=== PATIENT | female | born 1980 | race Caucasian/White ===

== ENCOUNTER 2016-11-22 08:26 | Emergency (ER) | payer OTHER ==
[~2016-11-22] VITALS: Ht 167.6 cm; Wt 78.0 kg
[~2016-11-22 08:26] MED LIST: ALBUTEROL0.09 MG/A1 INH; AUGMENTIN 875 M1 TAB PO; PREDNISONE50 MG PO
[2016-11-22 08:30] VITALS: BP 122/81
--- NOTE | 2016-11-22 08:49 | ED DYSPNEA/ASTHMA COMPLAINT ---
History of Present Illness General Chief Complaint: Wheezing/Asthma Stated Complaint: ASTHMA Source: patient, old records Exam Limitations: no limitations Vital Signs & Intake/Output Vital Signs & Intake/Output Vital Signs Date Time Temp Pulse Resp B/P Pulse O2 O2 Flow FiO2 Ox Delivery Rate 11/22 0938 96 11/22 0853 96 11/22 0850 Room Air Room Air 11/22 0830 96.7 64 16 122/81 96 Room Air Allergies Coded Allergies: NO KNOWN ALLERGIES (08/03/11) Reconcile Medications Albuterol Sulfate (Proair Hfa) 90 MCG HFA.AER.AD 2 PUF INH Q4-6 PRN PRN ASTHMA Albuterol Sulfate (Albuterol Sulfate Hfa) 0.09 MG/Actuation RAFAT 2 PUFF INH Q4- 6 PRN PRN SHORTNESS OF BREATH 90 MCG PER PUFF Prednisone 20 MG TABLET 2 TAB PO D ASTHMA EXACERBATION Triage Note: 36 Y/O FEMALE C/O SOB SINCE YESTERDAY; STATES SHE WAS DIAGNOSED WITH ASTHMA BY DR VILLASEÑOR, IN ED, OVER 1 YEAR AGO AND HAS BEEN USING ALBUTEROL WHEN NEEDED. LAST USED INHALER 0600 AND CONTINUES TO FEEL SOB. CONGESTED COUGH NOTED. SAT 96% RA, NO RESP. DISTRESS NOTED. AFEBRILE. Triage Nurses Notes Reviewed? yes Onset: Abrupt Duration: day(s): (2) Timing: multiple episodes today Severity: moderate Activities at Onset: none Associated Symptoms: cough : No Patient currently breastfeeds: No HPI: A 36-year-old female with history of asthma who presents here with chief complaint of shortness of breath for the past 2 days. She states she is to pro inhaler approximately 6 times yesterday. In the beginning of the day she felt it helped but then after that could not get any relief. She states she didn't feel (because she couldn't breathe. Denies any fever or chills. Slight productive cough with clear phlegm. She is a half pack per day smoker. No history was a patient for asthma. Denies any chest pain or tightness. Past History Travel History Traveled to [place] past 21 day No Medical History Any Pertinent Medical History? 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 No Review of Systems Review of Systems Constitutional: Denies: chills, fever. EENTM: Reports: no symptoms. Respiratory: Reports: cough, short of breath, sputum production. Cardiovascular: Denies: chest pain, palpitations, peripheral edema, syncope. GI: Denies: abdominal pain. Genitourinary: Reports: no symptoms. Musculoskeletal: Reports: no symptoms. Skin: Reports: no symptoms. Neurological/Psychological: Reports: no symptoms. Hematologic/Endocrine: Denies: bruising, bleeding, polyuria, polydipsia. Immunologic/Allergic: Denies: splenectomy. All Other Systems: Reviewed and Negative Physical Exam Physical Exam General Appearance: well developed/nourished, alert, awake, anxious, mild distress Head: atraumatic, normal appearance Eyes: Bilateral: normal appearance, PERRL, EOMI. Ears, Nose, Throat: normal pharynx, normal ENT inspection, hearing grossly normal Neck: normal inspection, supple, full range of motion Respiratory: decreased breath sounds, wheezing Cardiovascular: regular rate/rhythm Peripheral Pulses: 2+ radial (R), 2+ radial (L) Extremities: normal inspection, normal capillary refill, normal range of motion, no edema Neurologic/Psych: no motor/sensory deficits, awake, alert, oriented x 3 Skin: intact, normal color, warm/dry Core Measures ACS in differential dx? No Severe Sepsis Present: No Septic Shock Present: No Progress Differential Diagnosis: asthma, bronchitis Plan of Care: Orders Procedure Date/time Status RT ED ORDERS 11/22 0843 Complete 11/22/2016 10:06:45 AM Patient feeling much better after second DuoNeb and prednisone. Lungs are clear to auscultation, no wheezes or crackles. Prescription sent for prednisone and albuterol to her pharmacy in [place]. She was counseled regarding smoking cessation X 3 MINUTES. (ASHLI MARTINEZ,MIKO) Initial ED EKG: none Departure Departure Time of Disposition: 1007 Disposition: HOME OR SELF CARE Condition: Stable Clinical Impression Primary Impression: Asthma exacerbation Secondary Impressions: Tobacco abuse, Tobacco abuse counseling Referrals: UNKNOWN (PCP/Family) Additional Instructions: Take the prednisone as directed. Use the inhaler as needed. Please follow up with your primary care doctor in the office and stop smoking as we discussed. Return to the ER for any changing or worsening symptoms specifically high fever, chills, productive sputum. Departure Forms: Customer Survey General Discharge Information Prescriptions: Current Visit Scripts Prednisone 2 TAB PO D #8 TAB Albuterol Sulfate (Proair Hfa) 2 PUF INH Q4-6 PRN PRN ASTHMA #1 INHAL Critical Care Note Critical Care Note Critical Care Time: non-applicable
[2016-11-22] MEDS ORDERED: PREDNISONE20 M1 PO (10:08)
[2016-11-22] MEDS ORDERED: PROAIR HFA8.5 GM INH (10:08)
== END 2016-11-22 10:22 ==
LOC: ERH 08:26
DX: J45.901 Unspecified asthma with (acute) exacerbation (principal); Z72.0 Tobacco use
CPT/HCPCS: 1263